=== PATIENT | male | born 1990 | race Caucasian/White ===

== ENCOUNTER 2020-11-26 12:38 | Emergency (ER) | payer OTHER ==
[2020-11-26 12:45] VITALS: RESP 18; TEMP 98
--- NOTE | 2020-11-26 14:01 | CT ---
EXAMINATION TYPE: CT brain [place] wo con DATE OF EXAM: 11/26/2020 COMPARISON: NONE HISTORY: Fall, Head trauma; CT DLP: 1400.6 mGycm. Automated Exposure Control for Dose Reduction was Utilized. TECHNIQUE: CT scan of the head and cervical spine are performed without contrast. FINDINGS: There is no acute intracranial hemorrhage, mass effect, or midline shift identified. The ventricles and sulci are within normal limits in size. The globes are intact and the visualized sin uses are clear. The calvarium is intact. Cervical spine is visualized in its entirety from C1 through upper thoracic levels and demonstrates s traightened alignment without evidence of acute fracture or dislocation. Prevertebral soft tissue ap pears within normal limits. The C1-C2 articulation is within normal limits on the coronal images. Ve rtebral body heights are maintained. Anyd-[id number] spurring and disc space narrowing C6-C7 level, there is complex effaces anterior thecal sac at this level on sagittal and axial images greatest righ t paracentral level on axial image 77. Thyroid gland appears somewhat small in size . Lung apices tanja w no pneumothorax. IMPRESSION: 1. There is no acute fracture or dislocation evident in the cervical spine. 2. No acute intracranial hemorrhage or midline shift is seen.
--- NOTE | 2020-11-26 14:14 | ED ---
General Adult HPI - General Chief complaint: Syncope Stated complaint: Fall/syncope Source: patient, EMS Mode of arrival: EMS Limitations: no limitations - History of Present Illness Initial comments: 29-year-old previously healthy male presents emergency Department course includ es episode. Patient is currently at [facility] and has been there since the . Patient is in rehab for fentanyl, heroin and meth use. Patient reports he was in the bathroom when he had the sudden onset of lightheadedness. Patient fell to the ground and hit his head on the tile. He only lost consciousness a few seconds. He was able to get up and notify staff recommended that he come into the emergency room for evaluation. Patient was placed in a c-collar by EMS however did take this off prior to hospital arrival here. He denies any neck pain. No headaches or visual changes. No numbness, tingling or weakness of extremity. Denies any other injuries. Denies any chest pain or shortness of breath prior to the incident. No family history of cardiac disease. Patient is not currently on any medications. No other alleviating, precipitating or modifying factors - Related Data Home Medications Medication Instructions Recorded Confirmed Acetaminophen [Tylenol 8 Hour] 650 mg PO Q4H PRN 11/26/20 11/26/20 Calcium/Magnesium/Zinc 2 tab PO TID PRN 11/26/20 11/26/20 [Scxcjdq-Igvzswzjd-Vuxp Tablet] Chlorpheniramine Maleate 4 mg PO Q4H PRN 11/26/20 11/26/20 [Chlor-Trimeton] Hyoscyamine Sulfate [Levsin] 0.125 mg SL QID PRN 11/26/20 11/26/20 Ibuprofen [Motrin] 600 mg PO Q6H PRN 11/26/20 11/26/20 Loperamide [Imodium] 4 mg PO QID PRN 11/26/20 11/26/20 Tigan 200mg/Ml 200 mg IM Q6H PRN 11/26/20 11/26/20 Trimethobenzamide [Tigan] 300 mg PO Q6H PRN 11/26/20 11/26/20 Zofran 2mg/Ml 4 mg IM Q6H PRN 11/26/20 11/26/20 busPIRone HCl [Buspar] 10 mg PO TID PRN 11/26/20 11/26/20 ondansetron HCL [Zofran] 8 mg PO Q6HR PRN 11/26/20 11/26/20 traZODone HCL [Desyrel] 150 mg PO HS 11/26/20 11/26/20 Allergies Allergy/AdvReac Type Severity Reaction Status Date / Time No Known Allergies Allergy Verified 11/26/20 14:17 Review of Systems ROS Statement: Those systems with pertinent positive or pertinent negative responses have been documented in the HPI. ROS Other: All systems not noted in ROS Statement are negative. Past Medical History Past Medical History: No Reported History Additional Past Medical History / Comment(s): hepatitis C History of Any Multi-Drug Resistant Organisms: None Reported Past Surgical History: No Surgical Hx Reported Past Psychological History: Anxiety, Depression Smoking Status: Current every day smoker Past Alcohol Use History: None Reported Past Drug Use History: Cocaine, Heroin, IV Drug Use, Marijuana, Methamphetamine, Opiates, Prescription Drug Abuse General Exam Limitations: no limitations Course Vital Signs 11/26/20 12:40 Temperature 98.0 F Pulse Rate 65 Respiratory 18 Rate Blood Pressure 145/82 O2 Sat by Pulse 100 Oximetry EKG Findings - EKG Comments: EKG Findings:: EKG demonstrates normal sinus rhythm with a ventricular rate of 63. NV interval 154. QRS 86. QTC 415. Peak T waves V2 through V5. No acute ST segment elevations or depressions Medical Decision Making - Medical Decision Making On arrival patient is placed in room 3. There are history and physical exam was performed. Recommended laboratory studies and imaging of the patient's brain for which he did agree to. Tetanus is updated. Facial lacerations does not require any repair. Discussed results with the patient is requesting discharge back to [facility]. Instructed him to follow up with his 100-4 days. Return for any new worsening symptoms. Patient was discharged home to the patient - Lab Data Result diagrams: 11/26/20 14:35 11/26/20 14:35 Lab Results 11/26/20 11/26/20 11/26/20 Range/Units 14:35 14:35 14:35 WBC 9.9 (3.8-10.6) k/uL RBC 5.21 (4.30-5.90) m/uL Hgb 15.8 (13.0-17.5) gm/dL Hct 45.4 (39.0-53.0) % MCV 87.2 (80.0-100.0) fL MCH 30.4 (25.0-35.0) pg MCHC 34.9 (31.0-37.0) g/dL RDW 13.3 (11.5-15.5) % Plt Count 177 (150-450) k/uL MPV 7.9 Neutrophils % 80 % Lymphocytes % 14 % Monocytes % 4 % Eosinophils % 1 % Basophils % 0 % Neutrophils # 7.9 H (1.3-7.7) k/uL Lymphocytes # 1.4 (1.0-4.8) k/uL Monocytes # 0.4 (0-1.0) k/uL Eosinophils # 0.1 (0-0.7) k/uL Basophils # 0.0 (0-0.2) k/uL Sodium 138 (137-145) mmol/L Potassium 4.7 (3.5-5.1) mmol/L Chloride 104 (98-107) mmol/L Carbon Dioxide 27 (22-30) mmol/L Anion Gap 7 mmol/L BUN 12 (9-20) mg/dL Creatinine 0.66 (0.66-1.25) mg/dL Est GFR (CKD-EPI)AfAm >90 (>60 ml/min/1.73 sqM) Est GFR (CKD-EPI)NonAf >90 (>60 ml/min/1.73 sqM) Glucose 91 (74-99) mg/dL Calcium 9.8 (8.4-10.2) mg/dL Total Bilirubin 0.6 (0.2-1.3) mg/dL AST 24 (17-59) U/L ALT 17 (4-49) U/L Alkaline Phosphatase 71 (38-126) U/L Creatine Kinase 52 L (55-170) U/L Troponin I <0.012 (0.000-0.034) ng/mL Total Protein 7.8 (6.3-8.2) g/dL Albumin 4.5 (3.5-5.0) g/dL Disposition Clinical Impression: Syncope, Concussion Disposition: HOME SELF-CARE Condition: Stable Instructions (If sedation given, give patient instructions): Diphtheria/Acellular Pertussis/Tetanus Vaccine (By injection), Syncope (ED) Additional Instructions: You will be sent back to [facility]. Follow up with your PCP in 2-4 days. Return to the ED for any new or worsening symptoms. Is patient prescribed a controlled substance at d/c from ED?: No Referrals: None,Stated [Primary Care Provider] - 1-2 days Time of Disposition: 15:19
[2020-11-26 14:46] LABS: Basophils % (A) 0 %; Eosinophils # (A) 0.1 k/uL (0-0.7); Eosinophils % (A) 1 %; HCT 45.4 % (39.0-53.0); HGB 15.8 gm/dL (13.0-17.5); Lymphocytes # (A) 1.4 k/uL (1.0-4.8); Lymphocytes % (A) 14 %; MCH 30.4 pg (25.0-35.0); MCHC 34.9 g/dL (31.0-37.0); MCV 87.2 fL (80.0-100.0); Mean Platelet Volume 7.9; Monocytes # (A) 0.4 k/uL (0-1.0); Monocytes % (A) 4 %; Neutrophils # (A) 7.9 k/uL (1.3-7.7); Neutrophils % (A) 80 %; Platelet Count 177 k/uL (150-450); RBC 5.21 m/uL (4.30-5.90); RDW 13.3 % (11.5-15.5); WBC 9.9 k/uL (3.8-10.6)
[2020-11-26 14:58] LABS: ALT 17 U/L (4-49); AST 24 U/L (17-59); African American GFR (CKD) >90 (>60 ml/min/1.73 sqM); Albumin 4.5 g/dL (3.5-5.0); Alkaline Phosphatase 71 U/L (38-126); Anion Gap 7 mmol/L; Blood Urea Nitrogen 12 mg/dL (9-20); Calcium 9.8 mg/dL (8.4-10.2); Carbon Dioxide 27 mmol/L (22-30); Chloride 104 mmol/L (98-107); Creatine Kinase 52 U/L (55-170); Glucose 91 mg/dL (74-99); Non-African American GFR(CKD) >90 (>60 ml/min/1.73 sqM); Potassium 4.7 mmol/L (3.5-5.1); Sodium 138 mmol/L (137-145); Total Bilirubin 0.6 mg/dL (0.2-1.3); Total Protein 7.8 g/dL (6.3-8.2)
[2020-11-26] MEDS ORDERED: DIPH,PERTUS(ACELL)TETVAC-LF 0.5 ML VIAL IM ONE (15:17)
[2020-11-26 15:35] VITALS: BP 133/88; PULSE 66
== END 2020-11-26 15:47 | disposition home or self-care (01) ==
LOC: EC 12:38
DX: S06.0X1A Concussion with loss of consciousness of 30 minutes or less, initial encounter (principal); R55 Syncope and collapse; S01.81XA Laceration without foreign body of other part of head, initial encounter; F41.9 Anxiety disorder, unspecified; F32.9 Major depressive disorder, single episode, unspecified; F17.200 Nicotine dependence, unspecified, uncomplicated; Z23 Encounter for immunization; Z79.899 Other long term (current) drug therapy; W18.09XA Striking against other object with subsequent fall, initial encounter; Y92.002 Bathroom of unspecified non-institutional (private) residence as the place of occurrence of the external cause
CPT/HCPCS: 36415; 70450; 72125; 80053; 82550; 84484; 85025; 90471; 90715; 93005; 99284